=== PATIENT | female | born 1990 | race Caucasian/White ===

== ENCOUNTER 2016-10-17 14:52 | Inpatient (IN) | payer MEDICAID ==
[~2016-10-17] VITALS: Ht 154.9 cm; Wt 80.7 kg
[2016-10-17] MEDS ORDERED: PNV1TABL76 MT (15:03)
[2016-10-17] MEDS ORDERED: FOLI-43 PO (15:04)
[2016-10-17] MEDS ORDERED: METHYLERGONOVINE MALEATE 0.2 MG/ML IM PRN ×2 (17:45→19:30)
[2016-10-17] MEDS ORDERED: CARBOPROST TROMETHAMINE 250 MCG/ML AMPUL IM PRN (17:45)
[2016-10-17] MEDS ORDERED: NALOXONE HCL 0.4 MG/ML 1ML VIAL IM PRN (17:45)
[2016-10-17] MEDS ORDERED: LIDOCAINE HCL 1% 20ML VIAL (Pyxis) INJ INFIL SCH (17:45)
[2016-10-17] MEDS ORDERED: BUTORPHANOL TARTRATE 2 MG/ML VIAL IV PRN (17:45)
[2016-10-17] MEDS ORDERED: MISOPROSTOL 100MCG TABLET VG SCH (17:45)
[2016-10-17 18:14] LABS: CLARITY URINE CLEAR (CLEAR); COLOR URINE YELLOW (YELLOW); GLUCOSE URINE NEGATIVE (NEGATIVE); KETONES URINE NEGATIVE (NEGATIVE); LEUKOCYTE ESTERASE URINE NEGATIVE (NEGATIVE); NITRITE URINE NEGATIVE (NEGATIVE); OCCULT BLOOD URINE NEGATIVE (NEGATIVE); PH URINE 5.5 (4.5-8.0); PROTEIN URINE NEGATIVE (NEGATIVE); SPECIFIC GRAVITY URINE 1.025 (1.005-1.030); UROBILINOGEN URINE 0.2 E.U./dL (0.2-1.0)
[2016-10-17] MEDS: LACTATED RINGERS 1,000 ML IV SCH ×2 (18:16→18:17)
[2016-10-17 18:23] LABS: *BARBITURATES SCREEN URINE NEGATIVE (NEGATIVE); *BENZODIAZEPINES SCREEN URINE NEGATIVE (NEGATIVE); *COCAINE SCREEN URINE NEGATIVE (NEGATIVE); CANNABINOID URINE SCREEN NEGATIVE (NEGATIVE); ECSTASY MDMA SCREEN URINE NEGATIVE (NEGATIVE); METHADONE URINE SCREEN NEGATIVE (NEGATIVE); OPIATES URINE SCREEN NEGATIVE (NEGATIVE); PHENCYCLIDINE URINE SCREEN NEGATIVE (NEGATIVE)
[2016-10-17 18:27] LABS: *AMPHETAMINES SCREEN URINE PRESUMTIVE POSITIVE (NEGATIVE)
[2016-10-17 18:29] LABS: BASOPHILS % 0.2 % (0.0-2.0); EOSINOPHILS % 1.2 % (0.0-5.0); HEMATOCRIT. 31.9 % (36.0-48.0); HEMOGLOBIN. 10.4 g/dL (12.0-16.0); LYMPHOCYTES % 24.3 % (20.0-50.0); MEAN CORPUSCULAR HEMOGLOBIN 26.8 pg (28.0-32.0); MEAN CORPUSCULAR HGB CONC 32.5 g/dL (31.0-37.0); MEAN CORPUSCULAR VOLUME 82.5 fL (81.0-99.0); MEAN PLATELET VOLUME 10.2 fl (7.4-10.4); MONOCYTES % 5.7 % (2.0-8.0); NEUTROPHILS % 68.6 % (40.0-76.0); PLATELET 204 x1000/uL (130-400); RED BLOOD CELL COUNT 3.87 mill/uL (4.2-5.4); RED CELL DISTRIBUTION WIDTH 16.4 % (11.6-14.6); WHITE BLOOD COUNT 10.7 x1000/uL (4.5-11.0)
[2016-10-17 18:34] LABS: INR 0.9; PARTIAL THROMBOPLASTIN TIME 29.2 sec (24.0-34.0); PROTHROMBIN TIME 9.6 sec
[2016-10-17] MEDS: DEXT 5%/LR + PITOCIN 20UNITS/L 1,000 ML IV SCH ×2 (18:59→19:22)
[2016-10-17 19:02] LABS: HEPATITIS B SURFACE ANTIGEN NEGATIVE; RUBELLA IGG 14.7 IU/mL (4.99-10)
[2016-10-17] MEDS ORDERED: DEXT 5%/LR + PITOCIN 20UNITS/L 1,000 ML IV SCH (19:25)
[2016-10-17] MEDS ORDERED: LANOLIN OINT 0.25 GM TUBE TOP PRN ×2 (19:30→19:45)
[2016-10-17] MEDS ORDERED: RHO(D) IMMUNE GLOBULIN 300 MCG/SYR IM PRN (19:30)
[2016-10-17] MEDS ORDERED: ACETAMINOPHEN WITH CODEINE 300/30MG TABLET PO PRN (19:30)
[2016-10-17] MEDS ORDERED: INFLUENZA VIRUS VACCINE 0.5ML SYR IM ONE (20:00)
[2016-10-17 22:00] VITALS: BP 123/78
[2016-10-17 22:30] VITALS: BP 125/74
[2016-10-17 23:15] VITALS: BP 125/70
[2016-10-17] MEDS: IBUPROFEN 800MG TABLET PO PRN (23:15)
[2016-10-18 05:00] VITALS: BP 127/78
[2016-10-18 05:30] VITALS: BP 103/62
[2016-10-18 07:20] VITALS: BP 114/74
[2016-10-18 07:58] LABS: BASOPHILS % 0.3 % (0.0-2.0); EOSINOPHILS % 0.8 % (0.0-5.0); HEMATOCRIT. 30.6 % (36.0-48.0); LYMPHOCYTES % 24.8 % (20.0-50.0); MEAN CORPUSCULAR HEMOGLOBIN 26.7 pg (28.0-32.0); MEAN CORPUSCULAR HGB CONC 32.6 g/dL (31.0-37.0); MEAN CORPUSCULAR VOLUME 81.9 fL (81.0-99.0); MEAN PLATELET VOLUME 9.8 fl (7.4-10.4); NEUTROPHILS % 68.1 % (40.0-76.0); PLATELET 191 x1000/uL (130-400); RED BLOOD CELL COUNT 3.74 mill/uL (4.2-5.4); RED CELL DISTRIBUTION WIDTH 16.4 % (11.6-14.6); WHITE BLOOD COUNT 12.9 x1000/uL (4.5-11.0)
[2016-10-18] MEDS: PRENATAL VIT/FE FUMARATE/FA TABLET PO SCH (09:02)
[2016-10-18 17:00] VITALS: BP 127/74
[2016-10-18 19:45] VITALS: BP 124/82
[2016-10-18] MEDS: IBUPROFEN 800MG TABLET PO PRN (20:06)
[2016-10-19] MEDS ORDERED: TETANUS, DIPHTHERIA, PERTUSSIS VAC/PF 0.5ML (>7YR OLD) IM ONE (05:30)
[2016-10-19 07:35] VITALS: BP 100/55
[2016-10-19] MEDS ORDERED: INFLUENZA VIRUS VACCINE 0.5ML SYR IM ONE (08:30)
[2016-10-19] MEDS: IBUPROFEN 800MG TABLET PO PRN (08:33)
[2016-10-19] MEDS: PRENATAL VIT/FE FUMARATE/FA TABLET PO SCH (08:33)
[2016-10-25 17:17] LABS: AMPHETAMINE CONF URINE Positive (.)
== END 2016-10-19 10:40 | disposition home or self-care (01) | DRG 560 ==
LOC: L&D 14:52 → OBSVTOIN 14:52 → 8EST 21:56
PROVIDERS: ADMIT Obstetrics & Gynecology; ATTEND Obstetrics & Gynecology
PROC: 10E0XZZ Delivery of Products of Conception, External Approach (ICD-10-PCS; principal; 2016-10-17 19:18)
DX: O99.02 Anemia complicating childbirth (principal); O99.324 Drug use complicating childbirth; D64.9 Anemia, unspecified; F15.10 Other stimulant abuse, uncomplicated; Z3A.39 39 weeks gestation of pregnancy; Z37.0 Single live birth
CPT/HCPCS: 36415; 76815; 76818; 80102; 80305; 81003; 85025; 85610; 85730; 86592; 86703; 86762; 86850; 86900; 87340; 90686; 90715; J2590; J3490; J7120

== ENCOUNTER 2024-01-01 10:52 | Emergency (ER) | payer MEDICAID ==
[~2024-01-01] VITALS: Ht 162.6 cm; Wt 91.0 kg
[2024-01-01 10:57] VITALS: BP 122/77; TEMP 98.2; O2SAT 99
[2024-01-01 10:58] VITALS: PULSE 82
[2024-01-01 11:55] VITALS: RESP 16
== END 2024-01-01 15:36 | disposition home or self-care (01) ==
LOC: ER 10:52
DX: M79.672 Pain in left foot (principal)
CPT/HCPCS: 73630; 81025; 99283